=== PATIENT | female | born 2000 | race Caucasian/White ===

== ENCOUNTER 2021-01-29 14:32 | Emergency (ER) | payer OTHER ==
[2021-01-29] MEDS ORDERED: BENTYL 20MG TAB20 MG PO (15:41)
[2021-01-29] MEDS ORDERED: ZOFRAN4 MG PO (15:41)
== END 2021-01-29 15:58 | disposition home or self-care (01) ==
LOC: ER1 14:32
DX: R11.2 Nausea with vomiting, unspecified (principal); R19.7 Diarrhea, unspecified
CPT/HCPCS: 99283